=== PATIENT | female | born 1985 | race Caucasian/White ===

== ENCOUNTER 2024-10-05 17:32 | Emergency (ER) | payer BC, OTHER ==
[~2024-10-05] VITALS: Ht 160 cm; Wt 90.0 kg
[2024-10-05 17:34] VITALS: O2SAT 98
[2024-10-05] MEDS: ACETAMINOPHEN 325MG TABLET PO NR (19:46)
[2024-10-05 22:59] VITALS: BP 112/85; PULSE 92; RESP 18; TEMP 36.9; O2SAT 98
[2024-10-05] MEDS ORDERED: IBUPROFEN 400MG TABLET PO NR (23:00)
== END 2024-10-05 23:03 | disposition home or self-care (01) ==
LOC: ER 17:32
DX: S19.9XXA Unspecified injury of neck, initial encounter (principal); S09.90XA Unspecified injury of head, initial encounter; C56.9 Malignant neoplasm of unspecified ovary; Z88.5 Allergy status to narcotic agent; Z88.8 Allergy status to other drugs, medicaments and biological substances; V43.52XA Car driver injured in collision with other type car in traffic accident, initial encounter; Y93.89 Activity, other specified; Y92.89 Other specified places as the place of occurrence of the external cause; Y99.8 Other external cause status
CPT/HCPCS: 71045; 99284